=== PATIENT | male | born 1975 | race Caucasian/White ===

== ENCOUNTER 2020-08-26 09:03 | Emergency (ER) | payer OTHER ==
[2020-08-26] MEDS ORDERED: fentaNYL 100 MCG/2 ML SDV IVPUSH ONE ×2 (09:33→10:07)
[2020-08-26] MEDS ORDERED: Diphtheria,Pertussis(Acell),Tetanus Vaccine 0.5 ML Syringe IM ONE ×2 (10:15→10:30)
[2020-08-26] MEDS ORDERED: ceFAZolin 1 GM in Premix Bag 1 BAG IV ONE (10:27)
--- NOTE | 2020-08-26 10:27 | EDM.PDOC ---
ED HPI GENERAL MEDICAL PROBLEM - General Chief Complaint: Upper Extremity Injury/Pain Stated Complaint: R HAND RING/PINKY FINGER SEVERED Time Seen by Provider: 08/26/20 10:16 - History of Present Illness INITIAL COMMENTS - FREE TEXT/NARRATIVE: 45-year-old male presents the emergency room with a right hand injury. 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 Someone move the lever and the cable moved. The patient got his right pinky and ring finger caught between the karla and the cable amputating the ends of the fingers. The patient is unsure when his last tetanus shot was. He denies any allergies or significant medical problems. Right Hand Pain Score (Numeric/FACES): 6 - Related Data Allergies Allergy/AdvReac Type Severity Reaction Status Date / Time No Known Allergies Allergy Verified 08/26/20 09:16 Home Meds: Home Meds . [No Known Home Meds] 08/26/20 [History] Review of Systems - Review of Systems Review Of Systems: See Below Constitutional: Reports: No Symptoms Respiratory: Reports: No Symptoms Cardiovascular: Reports: No Symptoms GI/Abdominal: Reports: No Symptoms Genitourinary: Reports: No Symptoms Neurological: Reports: No Symptoms ED EXAM, GENERAL - Physical Exam Exam: See Below Exam Limited By: No Limitations General Appearance: Alert, No Apparent Distress Respiratory/Chest: No Respiratory Distress, Lungs Clear, Normal Breath Sounds Cardiovascular: Regular Rate, Rhythm, No Edema, No Murmur Extremities: Other (Examination of his right hand shows a amputation of the right pinky finger in the vicinity of the distal interphalangeal joint. Bone can be visualized in the center of this. Examination of the ring finger shows the distal phalanx sticking out with minimal skin coverage. He has some mild discomfort at the tip of the middle finger which is otherwise intact. His pinky and ring fingers are very tender and difficult to work with and to get clean.) Course - Vital Signs Last Recorded V/S: Last Vital Signs Temp 36.5 C 08/26/20 09:18 Pulse 72 08/26/20 09:18 Resp 20 08/26/20 09:18 BP 154/94 H 08/26/20 09:18 Pulse Ox 100 08/26/20 09:18 - Orders/Labs/Meds Orders: Active Orders 24 hr Category Date Time Status Vaccines to be Administered [RC] PER UNIT ROUTINE Care 08/26/20 10:16 Active Meds: Medications Discontinued Medications Generic Name Dose Route Start Last Admin Trade Name Emy PRN Reason Stop Dose Admin Diphtheria/Tetanus/Acell Pertussis 0.5 ml 08/26/20 10:30 08/26/20 10:37 Boostrix IM 08/26/20 10:31 0.5 ml .ONCE ONE Administration Fentanyl 50 mcg 08/26/20 09:33 08/26/20 09:46 Sublimaze IVPUSH 08/26/20 09:34 50 mcg ONETIME ONE Administration Fentanyl 100 mcg 08/26/20 10:07 08/26/20 10:26 Sublimaze IVPUSH 08/26/20 10:08 100 mcg ONETIME ONE Administration Cefazolin Sodium/Dextrose 1 gm 50 mls @ 100 mls/hr 08/26/20 10:27 08/26/20 10:46 / Premix IV 08/26/20 10:56 100 mls/hr ONETIME ONE Administration - Re-Assessments/Exams Free Text/Narrative Re-Assessment/Exam: 08/26/20 11:19 Is obtained are consistent with physical examination. The patient is continued debridement back at least to the DIPJ of both his right fourth and fifth fingers. X-rays also did show a tuft fracture closed on the middle finger. Case was discussed with Dr. Pool, on-call orthopedic surgeon, at [facility]. The patient will go by private car to the emergency room at [facility]. The patient will remain n.p.o. The patient has had his tetanus updated and is received a gram of Ancef here in the emergency department. Departure - Departure Time of Disposition: 11:20 Disposition: DC/Tfer to Acute Hospital 02 Clinical Impression: Traumatic amputation of finger of right hand, Closed fracture of tuft of distal phalanx of finger - Discharge Information Referrals: PCP,None [Primary Care Provider] - Forms: ED Department Discharge Additional Instructions: Go straight to the emergency room at [facility]. Do not have anything to eat or drink in route. Dr. Pool, a orthopedic surgeon, will evaluate you in the emergency room after you arrive. Sepsis Event Note (ED) - Evaluation Sepsis Screening Result: No Definite Risk - Focused Exam Vital Signs: Vital Signs Temp Pulse Resp BP Pulse Ox 08/26/20 09:18 36.5 C 72 20 154/94 H 100 - My Orders Last 24 Hours: My Active Orders 08/26/20 10:16 Vaccines to be Administered [RC] PER UNIT ROUTINE - Assessment/Plan Last 24 Hours: My Active Orders 08/26/20 10:16 Vaccines to be Administered [RC] PER UNIT ROUTINE
--- NOTE | 2020-08-26 10:53 | CR ---
Right hand: 2 views of the right hand were obtained. Comparison: No previous study. Soft tissue and bony amputation is noted within the distal fifth finger at the level of the very proximal distal phalanx. Distal phalanx of the fourth finger is missing. There is a small portion of the distal aspect of the distal phalanx of the digit which is missing. Additional fracture is seen within the distal remaining phalanx of this finger. Fracture is also noted within the distal aspect of the third finger with no soft tissue amputation. No additional abnormality is seen. Impression: 1. Soft tissue amputations and bony amputations within the fourth and fifth finger. 2. Small fracture within the distal finger of the third finger. Diagnostic code #3
[2020-08-26] MEDS ORDERED: HYDROmorphone 0.5 MG/0.5 ML Syringe IVPUSH ONE (11:38)
== END 2020-08-26 11:45 ==
LOC: JD.ED 09:03
DX: S68.626A Partial traumatic transphalangeal amputation of right little finger, initial encounter (principal); Z23 Encounter for immunization; W23.0XXA Caught, crushed, jammed, or pinched between moving objects, initial encounter
CPT/HCPCS: 73120; 90471; 90715; 96365; 96375; 96376; 99284; J0690; J1170; J3010